=== PATIENT | female | born 1970 | race Caucasian/White ===

== ENCOUNTER → 2017-10-17 | Outpatient (REF) | payer OTHER ==
[2017-10-17 10:01] LABS: TROPONIN I < 0.02 NG/ML (< 0.10)
[2017-10-17 11:25] LABS: VITAMIN B12 LEVEL 289 PG/ML (247-911)
== END ==
LOC: M LAB REF 09:14
DX: R07.89 Other chest pain (principal); R53.83 Other fatigue
CPT/HCPCS: 82607

== ENCOUNTER → 2020-06-19 | Outpatient (CLI) | payer SELFPAY | LOC: M LABSMTC 09:56 | PROVIDERS: ATTEND Pediatrics | DX: Z20.828 Contact with and (suspected) exposure to other viral communicable diseases (principal) ==

== ENCOUNTER → 2020-07-03 | Outpatient (CLI) | payer OTHER | LOC: M LABSMTC 10:45 | PROVIDERS: ATTEND Anesthesiology | DX: Z01.812 Encounter for preprocedural laboratory examination (principal); Z20.828 Contact with and (suspected) exposure to other viral communicable diseases ==

== ENCOUNTER → 2020-09-13 | Outpatient (CLI) | payer SELFPAY | LOC: M LABSMTC 13:59 | PROVIDERS: ATTEND Pediatrics | DX: Z20.822 Contact with and (suspected) exposure to COVID-19 (principal) ==

== ENCOUNTER → 2021-05-27 | Outpatient (REF) | payer OTHER ==
[2021-05-27 17:54] LABS: C REACTIVE PROTEIN QUANTITATIV 0.69 MG/DL (0.00-0.30); RHEUMATOID FACTOR QUANT < 10.0 IU/ML (<15.0)
[2021-05-30 18:07] LABS: ANTI DOUBLE STRAND-DNA AB 5 IU/mL (0-9); ANTINUCLEAR ANTIBODIES DIRECT Positive (Negative); Lyme Disease IgG/IgM Antibodie <0.91 ISR (0.00-0.90); Lyme Disease IgM Ab Quantitati <0.80 index (0.00-0.79); RNP ANTIBODIES <0.2 AI (0.0-0.9); SJOGREN'S ANTI SS-B >8.0 AI (0.0-0.9); SMITH ANTIBODIES <0.2 AI (0.0-0.9)
== END ==
LOC: M LAB REF 17:04
PROVIDERS: ATTEND Family Medicine
DX: M25.562 Pain in left knee (principal); R53.83 Other fatigue

== ENCOUNTER → 2021-06-01 | Outpatient (CLI) | payer OTHER ==
--- NOTE | 2021-06-01 16:57 | REP ---
INDICATION: PAIN IN LEFT KNEE COMPARISON: None TECHNIQUE: Five views FINDINGS: There is mild tricompartmental marginal osteophytosis with mild asymmetric patellofemoral joint space narrowing and medial compartmental narrowing. There is no acute fracture, dislocation, or subluxation. IMPRESSION: Chronic changes as described above. <Electronically signed by Duy Corona > 06/01/21 [id number]
== END ==
LOC: M RAD 15:46
PROVIDERS: ATTEND Family Medicine
DX: M25.562 Pain in left knee (principal)

== ENCOUNTER → 2021-07-04 | Outpatient (CLI) | payer OTHER ==
[~2021-07-04] MED LIST: VITMTA PO
== END ==
LOC: M LABSMTC 09:44
PROVIDERS: ATTEND Anesthesiology
DX: Z20.822 Contact with and (suspected) exposure to COVID-19 (principal)

== ENCOUNTER 2021-07-07 09:35 | Day surgery (SDC) | payer OTHER ==
[~2021-07-07] VITALS: Ht 170.2 cm; Wt 93.0 kg
[~2021-07-07 09:35] MED LIST changes: +NS 1,000 ML IV ONE
[2021-07-07] MEDS ORDERED: LIDOCAINE 2% 100MG/5ML SDV (FOR ANES.) As Ordered ONE (11:02)
[2021-07-07] MEDS ORDERED: propofoL 200 MG/20 ML VIAL As Ordered ONE ×2 (11:02→11:03)
--- NOTE | 2021-07-07 11:10 | ROOR ---
Patient Name: Lauryn Live Procedure Date: 07/07/2021 10:54 AM Date of : 1970 Age: 50 Room: [facility] Gender: Female Note Status: Finalized Procedure: Colonoscopy Indications: Screening for colorectal malignant neoplasm, Colon cancer screening in patient at increased risk: Family history of colorectal cancer in multiple 2nd degree relatives Providers: Clyde Hines Jr, MD Referring MD: Jose Martin Haile MD Requesting Provider: Medicines: Propofol per Anesthesia Complications: No immediate complications. Procedure: Pre-Anesthesia Assessment: - Prior to the procedure, a History and Physical was performed, and patient medications and allergies were reviewed. The patient is competent. The risks and benefits of the procedure and the sedation options and risks were discussed with the patient. All questions were answered and informed consent was obtained. Patient identification and proposed procedure were verified by the physician and the nurse in the pre-procedure area and in the procedure room. Mental Status Examination: alert and oriented. Airway Examination: normal oropharyngeal airway and neck mobility. Respiratory Examination: clear to auscultation. CV Examination: normal. ASA Grade Assessment: II - A patient with mild systemic disease. After reviewing the risks and benefits, the patient was deemed in satisfactory condition to undergo the procedure. The anesthesia plan was to use moderate sedation / analgesia (conscious sedation). Immediately prior to administration of medications, the patient was re-assessed for adequacy to receive sedatives. The heart rate, respiratory rate, oxygen saturations, blood pressure, adequacy of pulmonary ventilation, and response to care were monitored throughout the procedure. The physical status of the patient was re-assessed after the procedure. The Colonoscope was introduced through the anus and advanced to the cecum, identified by appendiceal orifice and ileocecal valve. The colonoscopy was performed without difficulty. The patient tolerated the procedure well. The quality of the bowel preparation was adequate. Findings: The rectum, recto-sigmoid colon, sigmoid colon, descending colon, transverse colon, ascending colon, cecum, appendiceal orifice and ileocecal valve appeared normal. Impression: - The rectum, recto-sigmoid colon, sigmoid colon, descending colon, transverse colon, ascending colon, cecum, appendiceal orifice and ileocecal valve are normal. - No specimens collected. Recommendation: - Discharge patient to home (ambulatory). - Repeat colonoscopy in 10 years for screening purposes. Procedure Code(s): --- Professional --- 34958, Colonoscopy, flexible; diagnostic, including collection of specimen(s) by brushing or washing, when performed (separate procedure) Diagnosis Code(s): --- Professional --- Z12.11, Encounter for screening for malignant neoplasm of colon Z80.0, Family history of malignant neoplasm of digestive organs CPT copyright 2019 [employer]. All rights reserved. The codes documented in this report are preliminary and upon invoice coder review may be revised to meet current compliance requirements. Clyde Hines MD Clyde Hines Jr, MD 07/07/2021 11:10:41 AM Electronically signed by Clyde Hines Jr, MD Number of Addenda: 0 Note Initiated On: 07/07/2021 10:54 AM Estimated Blood Loss: Estimated blood loss: none.
[2021-07-07 11:30] VITALS: BP 141/60
== END 2021-07-07 11:45 | disposition home or self-care (01) ==
LOC: M OPP 09:35
PROVIDERS: ATTEND Surgery
DX: Z12.11 Encounter for screening for malignant neoplasm of colon (principal); Z80.0 Family history of malignant neoplasm of digestive organs; K21.9 Gastro-esophageal reflux disease without esophagitis

== ENCOUNTER → 2021-10-06 | Outpatient (REF) | payer OTHER ==
[~2021-10-06] MED LIST changes: -NS 1,000 ML IV ONE
== END ==
LOC: M LAB REF 12:37
PROVIDERS: ATTEND Family Medicine
DX: M25.50 Pain in unspecified joint (principal)

== ENCOUNTER → 2023-05-24 | Outpatient (CLI) | payer OTHER | LOC: M WUC 15:02 | PROVIDERS: ATTEND Nurse Practitioner Family | DX: M25.571 Pain in right ankle and joints of right foot (principal); M77.31 Calcaneal spur, right foot; M79.89 Other specified soft tissue disorders; Z87.81 Personal history of (healed) traumatic fracture ==